=== PATIENT | male | born 1980 | race Two or more races ===

== ENCOUNTER 2018-01-26 12:25 | Emergency (ER) | payer BC, MEDICARE, OTHER ==
[2018-01-26 14:00] LABS: BILIRUBIN,URINE SMALL (NEG); CLARITY,URINE CLEAR; COLOR,URINE AMBER; GLUCOSE,URINE NEGATIVE (NEG); NITRITE,URINE NEGATIVE (NEG); PH,URINE 5.5; PROTEIN,URINE 30 mg/dL (NEG-TRACE)
[2018-01-26 14:05] LABS: BARBITURATES NEG (NEG); BENZODIAZEPINES NEG (NEG); CANNABINOIDS NEG (NEG); COCAINE NEG (NEG); METHADONE NEG (NEG); OPIATES NEG (NEG); PHENCYCLIDINE NEG (NEG)
[2018-01-26 14:06] LABS: AMPHETAMINE/METHAMPHETAMINE NEG (NEG); ETHANOL, URINE NEG (NEG)
[2018-01-26] MEDS: IV NORMAL SALINE 1000ML BAG 1,000 ML IV (14:14)
[2018-01-26] MEDS: ONDANSETRON PF 4 MG/2 ML VIAL. IV (14:15)
[2018-01-26] MEDS: TAMSULOSIN 0.4 MG CAP.ER.24H. PO (14:15)
[2018-01-26] MEDS: KETOROLAC 30 MG/ML INJ. IV (14:15)
[2018-01-26] MEDS: MORPHINE SULFATE 10 MG/ML VIAL. IV (14:16)
[2018-01-26 14:18] LABS: ADD MAN DIFF? NO
[2018-01-26 14:23] LABS: BACTERIA,URINE 0 /HPF (0-FEW); BASO % 0 % (0-3); EOS # 0.2 x10^3/uL (0.0-0.7); EOS % 2 % (0-3); HEMATOCRIT 45.7 % (39.0-53.0); HEMOGLOBIN 15.9 g/dL (13.0-17.5); LYMPH # 1.9 x10^3/uL (1.0-4.8); LYMPH % 23 % (24-48); MEAN CORPUSCULAR HEMOGLOBIN 33 pg (25-35); MEAN CORPUSCULAR HGB CONC 35 g/dL (31-37); MEAN CORPUSCULAR VOLUME 95 fL (79-100); MONO # 0.6 x10^3/uL (0.0-1.1); MONO % 7 % (0-9); NEUT # 5.5 x10^3uL (1.8-7.7); NEUT % 67 % (31-73); PLATELET COUNT 113 x10^3/uL (140-400); RBC,URINE 0 /HPF (0-2); RED BLOOD COUNT 4.79 x10^6/uL (4.30-5.70); RED CELL DISTRIBUTION WIDTH 13.5 % (11.5-14.5); SQUAMOUS EPITHELIAL CELL,UR MOD /LPF; WHITE BLOOD COUNT 8.3 x10^3/uL (4.0-11.0)
[2018-01-26 14:46] LABS: ANION GAP 11 (6-14); BLOOD UREA NITROGEN 14 mg/dL (8-26); BUN/CREATININE RATIO 16 (6-20); CALCIUM 8.4 mg/dL (8.5-10.1); CARBON DIOXIDE 23 mmol/L (21-32); CHLORIDE 108 mmol/L (98-107); CREATININE 0.9 mg/dL (0.7-1.3); GLUCOSE 132 mg/dL (70-99); POTASSIUM 3.4 mmol/L (3.5-5.1); SODIUM 142 mmol/L (136-145)
[2018-01-26 14:47] LABS: ETHANOL < 10 mg/dL (0-10)
[2018-01-26 14:51] LABS: ALBUMIN 3.2 g/dL (3.4-5.0); ALBUMIN/GLOBULIN RATIO 0.8 (1.0-1.7); ALK PHOS 60 U/L (46-116); ALT (SGPT) 39 U/L (16-63); AST (SGOT) 20 U/L (15-37); LIPASE 209 U/L (73-393); TOTAL BILIRUBIN 0.6 mg/dL (0.2-1.0); TOTAL PROTEIN 7.2 g/dL (6.4-8.2)
== END 2018-01-26 15:30 | disposition home or self-care (01) ==
LOC: ER 12:25
DX: R10.9 Unspecified abdominal pain (principal); L40.9 Psoriasis, unspecified; Z91.018 Allergy to other foods; Z87.442 Personal history of urinary calculi
CPT/HCPCS: 36415; 74176; 80053; 80307; 81001; 83690; 85025; 96374; 96375; 99285-25; G0480; J1885; J2270; J2405; J7030

== ENCOUNTER → 2018-02-15 | Outpatient (CLI) | payer BC | END | disposition home or self-care (01) | LOC: KCIC 13:31 | DX: M51.36 Other intervertebral disc degeneration, lumbar region (principal); M25.78 Osteophyte, vertebrae | CPT/HCPCS: 72110; 72170 ==

== ENCOUNTER → 2018-11-22 | Outpatient (CLI) | payer BC ==
[2018-01-26 15:00] VITALS: BP 114/64
[~2018-11-22] MED LIST: DIAZ5TAB PO; GADOBUTROL 10 MMOL/10 ML VIAL IV ONE; HYDR-3164 PO; OXYC5CAP PO
--- NOTE | 2018-11-22 13:57 | RAD ---
EXAM: Lumbar spine MRI without and with contrast. HISTORY: Lower back pain and right lower extremity radiculopathy. TECHNIQUE: Multiplanar, multisequence magnetic resonance imaging of the lumbar spine was performed prior to and following the administration of 90 cc Gadavist intravenous contrast. COMPARISON: Radiographs dated 02/15/2018. FINDINGS: There is no listhesis. The vertebral bodies are normal in height. There is a minimal disc space narrowing and disc desiccation at L3-L4 and L4-L5. There is mild endplate remodeling predominantly along the anterior inferior aspects of L1 and L2. There is no suspicious osseous lesion. There is no acute or subacute fracture. At L1-L2, L2-L3 and L3-L4, there is no stenosis. At L4-L5, there is a right foraminal to extra foraminal disc protrusion and annular tear. There is mild right foraminal stenosis with near abutment of the exiting right L4 nerve root. At L5-S1, there is no stenosis. IMPRESSION: 1. L4-L5: Right paracentral to extra foraminal disc protrusion and annular tear contributing to mild right foraminal stenosis and near abutment of the exiting right L4 nerve root. 2. Minimal degenerative change within the remainder of the lumbar spine, without significant stenosis. There is no acute osseous finding. Electronically signed by: Paz Can MD (11/22/2018 1:54 PM) [id number]
== END | disposition home or self-care (01) ==
LOC: MRI 12:28
PROVIDERS: ATTEND Family Medicine
DX: M51.26 Other intervertebral disc displacement, lumbar region (principal); M48.061 Spinal stenosis, lumbar region without neurogenic claudication; M47.817 Spondylosis without myelopathy or radiculopathy, lumbosacral region
CPT/HCPCS: 72158; A9585

== ENCOUNTER → 2020-02-08 | Outpatient (CLI) | payer BC ==
[2018-01-26 15:00] VITALS: BP 114/64
[~2020-02-08] MED LIST changes: -GADOBUTROL 10 MMOL/10 ML VIAL IV ONE
--- NOTE | 2020-02-08 08:08 | RAD ---
ABDOMEN COMPLETE History: Hepatic cirrhosis. Comparison: CT January 26, 2018 Technique: Sonographic examination of the abdomen was performed and multiple grayscale and color Doppler static images were obtained. Findings: Nodular contour of the liver. The liver measures 14.2 cm. Portal flow is patent. Common bile duct measures 3.5 mm in diameter. Gallbladder wall is normal. No cholelithiasis or pericholecystic fluid. Visualized pancreas is homogeneous. The right kidney measures 12.8 x 5.5 x 6.0 cm. No hydronephrosis. The left kidney measures 12.0 x 4.7 x 5.6 cm. No hydronephrosis. The spleen measures 14.1 cm. Visualized portions of the abdominal aorta and IVC are normal. IMPRESSION: 1. Nodular contour of the liver, compatible with known chronic liver disease. 2. Mild splenomegaly. Electronically signed by: Anjel Jones DO (02/08/2020 8:05 AM) [id number]
== END | disposition home or self-care (01) ==
LOC: US 07:20
PROVIDERS: ATTEND Family Medicine
DX: K74.60 Unspecified cirrhosis of liver (principal)
CPT/HCPCS: 76700